=== PATIENT | female | born 1950 | race Hispanic/Latino ===

== ENCOUNTER → 2023-05-17 | Day surgery (SDC) | payer MEDICARE, OTHER ==
[~2023-05-17] MED LIST: ACETAMINOPHEN 1000 MG/100 ML 100 ML IV ONE; ACETAMINOPHEN/CODEINE 300MG - 30MG TAB ONE; ATENOLOL50 MG PO; CARVEDILOL6.25 MG PO; CENTRUM SILVER1 EACH PO; CETIRIZINE HCL10 M1 PO; DEXAMETHASONE SOD PHOS INJ 4 MG/ML SDV ONE; DULOXETINE HCL30 MG PO; EPHEDRINE SULFATE INJ 50 MG/ML VIAL ONE; FENTANYL CITRATE/PF 100MCG/2 ML INJ ONE; HYDROCHLOROTH12.5 MG PO; HYDROCHLOROTHIA25 MG PO; LACTATED RINGER'S 1,000 ML ONE; LIDOCAINE HCL 2% LOCAL INJ 5 ML SDV VIAL INJ ONE; LISINOPRIL10 MG PO; LOSARTAN POTASS50 MG PO; ONDANSETRON HCL INJ 2MG/ML 2ML 2 MG/ML VIAL ONE; POVIDONE IODINE 0.05% 0.05 % ML PO ONE; PROPOFOL IV EMULSION 10 MG/ML 20 ML VIAL ONE; SEVOFLURANE INHAL SOLN 250 ML PEN BTL ONE; VITAMIN B12 PO; VITAMIN C500 MG PO; VITAMIN D325 MCG
[2023-05-17 08:35] VITALS: BP 131/72; PULSE 64; RESP 16; O2SAT 94
== END | disposition home or self-care (01) ==
LOC: OR 05:36
PROVIDERS: ATTEND Specialist
DX: G56.01 Carpal tunnel syndrome, right upper limb (principal); I10 Essential (primary) hypertension; E11.9 Type 2 diabetes mellitus without complications; K57.90 Diverticulosis of intestine, part unspecified, without perforation or abscess without bleeding; Z88.6 Allergy status to analgesic agent; Z01.810 Encounter for preprocedural cardiovascular examination; Z01.818 Encounter for other preprocedural examination; Z79.899 Other long term (current) drug therapy; Z68.33 Body mass index [BMI] 33.0-33.9, adult; Z85.41 Personal history of malignant neoplasm of cervix uteri
CPT/HCPCS: 29848; 71046; 93005; J0131; J0690; J1100; J2001; J2405; J2704; J3010; J7121

== ENCOUNTER 2023-12-15 17:32 | Emergency (ER) | payer MEDICARE ==
[~2023-12-15] VITALS: Ht 147.3 cm; Wt 73.5 kg
[~2023-12-15 17:32] MED LIST changes: -ACETAMINOPHEN 1000 MG/100 ML 100 ML IV ONE; -ACETAMINOPHEN/CODEINE 300MG - 30MG TAB ONE; -DEXAMETHASONE SOD PHOS INJ 4 MG/ML SDV ONE; -EPHEDRINE SULFATE INJ 50 MG/ML VIAL ONE; -FENTANYL CITRATE/PF 100MCG/2 ML INJ ONE; -LACTATED RINGER'S 1,000 ML ONE; -LIDOCAINE HCL 2% LOCAL INJ 5 ML SDV VIAL INJ ONE; -ONDANSETRON HCL INJ 2MG/ML 2ML 2 MG/ML VIAL ONE; -POVIDONE IODINE 0.05% 0.05 % ML PO ONE; -PROPOFOL IV EMULSION 10 MG/ML 20 ML VIAL ONE; -SEVOFLURANE INHAL SOLN 250 ML PEN BTL ONE
[2023-12-15 17:50] VITALS: O2SAT 97
[2023-12-15] MEDS ORDERED: METHOCARBAMOL750 MG PO (18:13)
[2023-12-15] MEDS ORDERED: MEDROL4 M2 PO (18:13)
== END 2023-12-15 18:15 | disposition home or self-care (01) ==
LOC: ER 17:47
DX: M54.41 Lumbago with sciatica, right side (principal); I10 Essential (primary) hypertension
CPT/HCPCS: 99282

== ENCOUNTER → 2025-05-28 | Outpatient (REF) | payer MEDICARE ==
[~2025-05-28] MED LIST changes: +ATORVASTATIN CA40 MG PO; +BROMFED DM COU118 ML PO; +GLIMEPIRIDE2 MG PO; +MEDROL4 M2 PO; +METHOCARBAMOL750 MG PO
[2025-05-28 11:37] LABS: BASOPHILS % 0.4 % (0.0-1.0); EOSINOPHILS # (AUTO) 0.2 (0.0-0.4); EOSINOPHILS % 2.2 % (0.0-6.0); HEMATOCRIT 39.1 % (34.2-44.1); HEMOGLOBIN 12.9 g/dL (12.0-16.0); LYMPHOCYTES # (AUTO) 1.8 (1.0-3.2); LYMPHOCYTES % 19.5 % (18.0-39.1); MEAN CORPUSCULAR HEMOGLOBIN 30.4 pg (28-32); MONOCYTES # (AUTO) 0.8 (0.2-0.8); MONOCYTES % 8.9 % (4.4-11.3); NEUTROPHILS # (AUTO) 6.3 (2.1-6.9); NEUTROPHILS % 67.7 % (38.7-80.0); PLATELET COUNT 217 x10e3/uL (140-360); RED BLOOD COUNT 4.25 x10e6/uL (3.6-5.1); RED CELL DISTRIBUTION WIDTH 14.1 % (11.7-14.4); WHITE BLOOD COUNT 9.37 x10e3/uL (4.8-10.8)
[2025-05-28 12:00] LABS: CALCIUM 10.3 mg/dL (8.4-10.2); CREATININE, SERUM 0.84 mg/dL (0.57-1.11)
== END ==
LOC: RAD 08:00 → EDSTATUS 06-05 13:00
PROVIDERS: ATTEND Surgery
DX: Z01.810 Encounter for preprocedural cardiovascular examination (principal); Z01.812 Encounter for preprocedural laboratory examination; K44.9 Diaphragmatic hernia without obstruction or gangrene
CPT/HCPCS: 36415; 71046; 80048; 85025; 93005